=== PATIENT | female | born 1955 | race Two or more races ===

== ENCOUNTER 2017-12-05 19:47 | Inpatient (IN) | payer OTHER ==
--- NOTE | 2017-12-05 20:12 | EDPHY ---
H & P Smoking Status: Never smoked Time Seen by Provider: 12/05/17 20:01 HPI/ROS: CHIEF COMPLAINT: Left lower leg swelling and pain for 2 days HISTORY OF PRESENT ILLNESS: Patient is a 62-year-old [place] female here with her family for complaints of 2 days of left lower leg pain. He states he flew here from [place] about 1 week ago and has been walking around that of last few days she developed lower leg pain and swelling and erythema. She denies any fever or chills. There was no injury. She denies any chest pain or shortness of breath. She said the pain radiates the back of her leg into her left hip. She has never had a DVT or pulmonary embolism. REVIEW OF SYSTEMS: Constitutional: No fever, no chills. Eyes: No discharge. ENT: No sore throat. Cardiovascular: No chest pain, no palpitations. Respiratory: No cough, no shortness of breath. Gastrointestinal: No abdominal pain, no vomiting. Genitourinary: No hematuria. Musculoskeletal: No back pain. Skin: No rashes. Neurological: No headache. (Keith Gilmore) Physical Exam: General Appearance: Alert and no distress. Eyes: Pupils equal and round no injection. Respiratory: Chest is nontender, lungs are clear to auscultation. Cardiac: regular rate and rhythm. Gastrointestinal: Abdomen is soft and nontender, no masses, bowel sounds normal. Musculoskeletal: Left lower leg swelling and erythema when compared to the right. Tenderness to the left calf. Positive Homans. Neurovascular intact distal to the left ankle. Faint erythema and warmth when compared to the right. Skin: No rashes or lesions. (Keith Gilmore) Constitutional: Initial Vital Signs Temperature (C) 37.4 C 12/05/17 19:52 Heart Rate 80 12/05/17 19:52 Respiratory Rate 18 12/05/17 19:52 Blood Pressure 153/93 H 12/05/17 19:52 O2 Sat (%) 97 12/05/17 19:52 O2 Delivery Mode Room Air Allergies/Adverse Reactions: No Known Allergies Allergy (Verified 12/06/17 09:48) Home Medications: Medication Instructions Recorded Acetaminophen [Tylenol 325mg (*)] 325 mg PO DAILY PRN 12/06/17 Amlopres 5mg 5 mg PO DAILY 12/06/17 Multivitamins [Multivitamin (*)] 1 each PO DAILY 12/06/17 Apixaban [Eliquis] 5 mg PO BID #74 tab 12/09/17 Hydrocodone/APAP 5/325 [[place] 1 - 2 tab PO Q4HRS PRN #20 tab 12/09/17 5/325 (*)] Hydrocodone/Acetaminophen [[place] 1 - 2 tab PO Q6H PRN #20 tab 12/09/17 5/325 (*)] Medical Decision Making ED Course/Re-evaluation: 8-year-old female here with 24 hr of left leg pain found to have extensive DVT extending from the calf all the way to the inferior IV C. I discussed case with Radiology recommended consult with IR. I did discuss case with Interventional Radiology this evening and they stated that they would be willing to take the patient for thrombolysis tomorrow morning for the 1st case. She is to be kept NPO after midnight and heparin drip should be started this evening. Patient states no recent surgeries or trauma or history is of GI bleed. She is agreeable with admission. She has no chest pain or shortness of breath or hypoxia. (Keith Gilmore) This patient was primarily managed by the physician server assistant. I have reviewed the documentation and agree with the plan of care. I am the secondary supervising physician. (Yodit Waller) Differential Diagnosis: Pulmonary embolism, DVT, sepsis, abscess, septic joint (Keith Gilmore) - Data Points Laboratory Results: Laboratory Results 12/05/17 20:15 12/05/17 20:15 Medications Given: Discontinued Medications Acetaminophen (Tylenol) 650 mg PO Q4HRS PRN PRN Reason: Pain, Mild/Fever, Can Take PO Stop: 06/03/18 22:25 Last Admin: 12/07/17 00:09 Dose: 650 mg Hydrocodone Bitart/Acetaminophen ([place] 5/325) 1 - 2 tab PO Q4HRS PRN PRN Reason: Pain, Moderate Able to Take PO Stop: 12/15/17 22:25 Last Admin: 12/06/17 12:21 Dose: 1 tab Alteplase, Recombinant (Cathflo Activase) 0 mg IVP ONCALL PRN PRN Reason: Per provider during procedure Stop: 12/06/17 14:17 Last Admin: 12/07/17 17:19 Dose: 4 mg Amlodipine Besylate (Norvasc) 5 mg PO DAILY COUNT INCLUDES THE [facility] Stop: 06/05/18 11:59 Last Admin: 12/07/17 19:40 Dose: 5 mg Amlodipine Besylate (Norvasc) 5 mg PO DAILY COUNT INCLUDES THE [facility] Stop: 06/05/18 19:59 Last Admin: 12/09/17 09:06 Dose: 5 mg Enoxaparin Sodium (Lovenox) 90 mg SC ONCE ONE Stop: 12/07/17 18:46 Last Admin: 12/07/17 18:53 Dose: 90 mg Enoxaparin Sodium (Lovenox) 90 mg SC BID COUNT INCLUDES THE [facility] Stop: 06/06/18 08:59 Last Admin: 12/09/17 09:07 Dose: 90 mg Fentanyl (Sublimaze) 0 mcg IVP ONCALL PRN PRN Reason: Per provider during procedure Stop: 12/06/17 14:17 Last Admin: 12/07/17 17:56 Dose: 100 mcg Fentanyl (Sublimaze) 0 mcg IVP ONCALL PRN PRN Reason: Per provider during procedure Stop: 12/07/17 16:18 Last Admin: 12/07/17 16:15 Dose: 100 mcg Heparin Sodium (Porcine) (Heparin Injection) 0 unit IVP PRN PRN PRN Reason: re-bolus required by protocol Stop: 06/03/18 22:27 Last Admin: 12/07/17 16:31 Dose: 4,500 units Heparin Sodium (Porcine) (Heparin Injection) 0 unit IVP ONCE ONE Stop: 12/05/17 22:29 Last Admin: 12/06/17 00:33 Dose: 7,300 units Heparin Sodium (Porcine) (Heparin 50 Units/Ml (Premix)) 500 mls @ 0 mls/hr IV CONT ANA PAULA; Per Protocol PRN Reason: Protocol Stop: 06/03/18 22:29 Last Admin: 12/06/17 14:47 Dose: 500 mls Sodium Chloride (Ns) 1,000 mls @ 75 mls/hr IV CONT ANA PAULA Stop: 06/03/18 22:29 Last Admin: 12/07/17 16:16 Dose: 1,000 mls Alteplase, Recombinant 5 mg/ (Sodium Chloride) 100 mls @ 0 mls/hr IV CONT ANA PAULA PRN Reason: Per Protocol Stop: 06/04/18 13:59 Last Admin: 12/06/17 14:45 Dose: 100 mls Alteplase, Recombinant 5 mg/ (Sodium Chloride) 100 mls @ 0 mls/hr IV CONT ANA PAULA; Per Protocol PRN Reason: Protocol Stop: 06/04/18 16:29 Last Admin: 12/06/17 19:31 Dose: 100 mls Heparin Sodium (Porcine) (Heparin 50 Units/Ml (Premix)) 500 mls @ 0 mls/hr IV CONT ANA PAULA; As Directed PRN Reason: Protocol Stop: 06/04/18 21:29 Last Admin: 12/06/17 20:30 Dose: 500 mls Alteplase, Recombinant 5 mg/ (Sodium Chloride) 100 mls @ 10 mls/hr IV CONT ANA PAULA PRN Reason: Protocol Stop: 06/05/18 02:59 Last Admin: 12/07/17 12:44 Dose: 100 mls Sodium Chloride (Ns) 60 mls @ 20 mls/hr IV ONCE ONE Stop: 12/07/17 02:59 Last Admin: 12/07/17 00:00 Dose: 60 mls Sodium Chloride (Ns) 500 mls @ 20 mls/hr IV CONT ANA PAULA Stop: 06/05/18 06:59 Last Admin: 12/07/17 06:46 Dose: 500 mls Lorazepam (Ativan Injection) 1 mg IVP Q4HRS PRN PRN Reason: Anxiety, Unable to Take PO Stop: 06/04/18 16:38 Last Admin: 12/07/17 19:11 Dose: 1 mg Midazolam HCl (Versed) 0 mg IVP ONCALL PRN PRN Reason: Per provider during procedure Stop: 12/06/17 14:17 Last Admin: 12/07/17 17:56 Dose: 2 mg Midazolam HCl (Versed) 0 mg IVP ONCALL PRN PRN Reason: Per provider during procedure Stop: 12/07/17 16:18 Last Admin: 12/07/17 16:15 Dose: 2 mg Morphine Sulfate (Morphine) 1 - 2 mg IVP Q1HR PRN PRN Reason: Pain, Severe Unable to Take PO Stop: 12/15/17 22:25 Last Admin: 12/07/17 19:11 Dose: 2 mg Senna/Docusate Sodium (Senokot-S) 1 - 2 tab PO BID ANA PAULA PRN Reason: Protocol Stop: 06/05/18 11:14 Last Admin: 12/09/17 09:09 Dose: Not Given Departure - Departure Disposition: [facility] Acute Condition: Good
[2017-12-05 20:29] LABS: PLATELET COUNT 183 10^3/uL (150-400)
[2017-12-05 22:26] LABS: INR 1.11 (0.83-1.16); PROTIME(PATIENT) 14.5 SEC (12.0-15.0)
[2017-12-05] MEDS ORDERED: ONDANSETRON DISINTEGRATING 4 MG TAB PO PRN (22:26)
[2017-12-05] MEDS ORDERED: ACETAMINOPHEN 325 MG TAB PO PRN (22:26)
[2017-12-05] MEDS ORDERED: ONDANSETRON 4 MG/2 ML VIAL IVP PRN (22:26)
[2017-12-05] MEDS ORDERED: LORazepam 0.5 MG TAB PO PRN (22:26)
[2017-12-05] MEDS ORDERED: HEPARIN 10,000 UNIT/10 ML MDV (1,000 UNIT/ML) IVP ONE (22:28)
[2017-12-05] MEDS ORDERED: HEPARIN 10,000 UNIT/10 ML MDV (1,000 UNIT/ML) IVP PRN (22:28)
--- NOTE | 2017-12-05 23:13 | PDGENHP ---
History and Physical - Chief Complaint Left leg swelling and pain - History of Present Illness Source - Patient is visiting from [place], she understands and speaks limited amount of Martiniquais. Daughter is at bedside and provides majority of the history. Control Operator Flow Coat service offered and declined. EMR reviewed and case discussed with ED provider. HPI - Pleasant 62 yo F with pmx significant for HTN visiting her daughter from [place] arrived last week by plane. Patient plans to stay for several months in the area with her daughter. Patient reports development of leg swelling yesterday with noticeable increase in swelling and pain today. Patient denies any injury or previous history of DVT. She also reports she was sitting on the couch watching TV for majority of the day today. She denies any numbness/ tingling. No chest pain, SOB, cough. Patient does endorse some heartburn since arriving from [facility] but has a history of this dependent on food choices. Patient's diet has changed since her arrival to the . History Information - Allergies/Home Medication List Allergies/Adverse Reactions: No Known Allergies Allergy (Unverified 12/05/17 19:56) Home Medications: Htn Med 12/05/17 [Last Taken Unknown] I have personally reviewed and updated: family history, medical history, social history, surgical history - Past Medical History GERD, hypertension - Surgical History Additional surgical history: right TKA - Family History Additional family history: negative for DVT. - Social History Smoking Status: Never smoked Alcohol Use: None Drug Use: None Additional social history: Patient lives in [facility]. She is visiting her daughter locally. COR - FULL. Review of Systems Review of Systems: ROS: 10pt was reviewed & negative except for what was stated in HPI & below Constitutional: Reports: no symptoms EENMT: Reports: no symptoms Cardiac: Reports: edema. Denies: chest pain Respiratory: Reports: no symptoms Gastrointestinal: Reports: no symptoms Genitourinary: Reports: no symptoms Muscolosketal: Reports: back pain (left buttock, proximal leg) Skin: Reports: no symptoms Neurological: Reports: no symptoms Hematologic/Lymphatic: Reports: no symptoms Physical Exam Physical Exam: Selected Entries 12/05/17 19:52 Blood Pressure Automatic Method Heart Rate 80 Respiratory 18 Rate O2 Sat (%) 97 Temperature (C) 37.4 C Blood Pressure 153/93 H Mean Arterial 113 H Pressure (MAP) O2 Delivery Room Air Mode Temperature Oral Source Temp Pulse Resp BP Pulse Ox 37.4 C 68 16 149/94 H 100 12/05/17 19:52 12/05/17 23:00 12/05/17 23:00 12/05/17 23:00 12/05/17 23:00 Constitutional: no apparent distress, appears nourished, obese, other (NAD. patient lays still on gurney. appears uncomfortable with sitting up c/o left buttock/upper thigh pain/swelling.) Eyes: PERRL, anicteric sclera, EOMI, No scleral injection Ears, Nose, Mouth, Throat: moist mucous membranes, poor dentition (multiple gold caps.) Cardiovascular: regular rate and rhythym, no murmur, rub, or gallop, edema ( left leg) Peripheral Pulses: 1+: dorsalis-pedis (R), dorsalis-pedis (L) Respiratory: no respiratory distress, no rales or rhonchi, clear to auscultation , No expiratory wheeze, No inspiratory crackles, No respiratory distress Gastrointestinal: normoactive bowel sounds, soft, non-tender abdomen, no palpable masses, other (obese abdomen), No distension Genitourinary: no bladder tenderness Skin: warm, normal color, no rashes or abrasions, other (left lower leg with some increased pigmentation/redness/swelling compared to the left. Tender left lower extremity from mid claf proximally.), No rash Musculoskeletal: full muscle strength, other (patient sits up independently.), No generalized weakness Neurologic: other (grossly nonfocal exam), No facial droop Psychiatric: interacting appropriately, not encephalopathic, No anxious Lab Data & Imaging Review 12/05/17 20:15 12/05/17 20:15 WBC 8.16 10^3/uL (3.80-9.50) 12/05/17 20:15 RBC 4.19 10^6/uL (4.18-5.33) 12/05/17 20:15 Hgb 12.3 g/dL (12.6-16.3) L 12/05/17 20:15 Hct 36.1 % (38.0-47.0) L 12/05/17 20:15 MCV 86.2 fL (81.5-99.8) 12/05/17 20:15 MCH 29.4 pg (27.9-34.1) 12/05/17 20:15 MCHC 34.1 g/dL (32.4-36.7) 12/05/17 20:15 RDW 12.3 % (11.5-15.2) 12/05/17 20:15 Plt Count 183 10^3/uL (150-400) 12/05/17 20:15 MPV 9.4 fL (8.7-11.7) 12/05/17 20:15 Neut % (Auto) 74.3 % (39.3-74.2) H 12/05/17 20:15 Lymph % (Auto) 15.7 % (15.0-45.0) 12/05/17 20:15 [place] % (Auto) 8.9 % (4.5-13.0) 12/05/17 20:15 Eos % (Auto) 0.2 % (0.6-7.6) L 12/05/17 20:15 Baso % (Auto) 0.5 % (0.3-1.7) 12/05/17 20:15 Nucleat RBC Rel Count 0.0 % (0.0-0.2) 12/05/17 20:15 Absolute Neuts (auto) 6.06 10^3/uL (1.70-6.50) 12/05/17 20:15 Absolute Lymphs (auto) 1.28 10^3/uL (1.00-3.00) 12/05/17 20:15 Absolute Monos (auto) 0.73 10^3/uL (0.30-0.80) 12/05/17 20:15 Absolute Eos (auto) 0.02 10^3/uL (0.03-0.40) L 12/05/17 20:15 Absolute Basos (auto) 0.04 10^3/uL (0.02-0.10) 12/05/17 20:15 Absolute Nucleated RBC 0.00 10^3/uL (0-0.01) 12/05/17 20:15 Immature Gran % 0.4 % (0.0-1.1) 12/05/17 20:15 Immature Gran # 0.03 10^3/uL (0.00-0.10) 12/05/17 20:15 ESR 8 MM/HR (0-30) 12/05/17 20:15 PT 14.5 SEC (12.0-15.0) 12/05/17 20:15 INR 1.11 (0.83-1.16) 12/05/17 20:15 APTT 26.6 SEC (23.0-38.0) 12/05/17 20:15 Sodium 130 mEq/L (135-145) L 12/05/17 20:15 Potassium 4.6 mEq/L (3.3-5.0) 12/05/17 20:15 Chloride 95 mEq/L (97-110) L 12/05/17 20:15 Carbon Dioxide 22 mEq/l (22-31) 12/05/17 20:15 Anion Gap 13 mEq/L (8-16) 12/05/17 20:15 BUN 19 mg/dL (7-23) 12/05/17 20:15 Creatinine 0.9 mg/dL (0.6-1.0) 12/05/17 20:15 Estimated GFR > 60 12/05/17 20:15 Glucose 108 mg/dL (70-100) H 12/05/17 20:15 Calcium 9.4 mg/dL (8.5-10.4) 12/05/17 20:15 C-Reactive Protein 29.0 mg/L (<10.0) H 12/05/17 20:15 Imaging Review: Ultrasound and Venous Duplex Doppler Study with Color and Spectral Analysis of the Left Lower Extremity Clinical History: 62-year-old female presenting to the ED with left lower extremity swelling which began this morning; the patient recently flew from [place] 2 weeks ago. Rule out DVT. Technique: A high frequency transducer was used for imaging and Doppler study of the veins of the left lower extremity. Pulsed Doppler and color Doppler were utilized, along with various maneuvers to assess flow in the veins. Cursory evaluation of the contralateral common femoral vein was obtained for comparison purposes. Comparison Study: None. Findings: There is extensive left lower extremity deep venous thrombosis extending possibly from the level of the lower IVC (body habitus and overlying bowel gas preclude complete evaluation at this level), and throughout the visualized left common iliac vein, left external iliac vein, left common femoral vein, left profunda femoris vein, left superficial femoral vein, left popliteal vein , and the paired left posterior tibial and peroneal veins. There is also clot within the left greater saphenous vein near the saphenofemoral junction. The popliteal fossa is unremarkable. Impression: Extensive left lower extremity deep venous thrombosis, as-detailed. Findings were discussed with Keith Gilmore PA-C at 21:39, on 12/05/2017. Dictated By: Keith Garnett MD Visualized and Interpreted imaging results: Yes Assessment & Plan Assessment: 62 yo F with pmx significant for HTN recently arrived from [place] to visit daughter for few months presents with c/o 2 days history of increased leg swelling and today leg pain. 1. extensive LLE DVT - Patient has been starting on heparin gtt with appropriate bolus. IR consulted from the ED before admission and will plan for additional thrombolytic therapy. NPO after midnight. 2. LLE pain/swelling - tylenol prn. supportive care. patient had been taking ibuprofen advised against NSAIDs and would not be ordered at this time. plan as above with IR in AM. 3. hyponatremia - possibly related to dehydration vs. patient anti-hypertensive therapy which daughter will bring tomorrow. IVF overnight. additional urine studies for worsening sodium in AM. 4. hypochloridemia in setting of hyponatremia. repeat bmp in AM. IVF as above. 5. anemia - suspect anemia of chronic disease. will monitor hh closely with anticoagulation. no evidence of active bleeding and no report of bleeding previously. 4. benign essential HTN - BPs mildly elevated. Patient on an antihypertensive from [place]. daughter plans to bring in patient pill packaging. add prn if needed but at this time BPs stable. 5. obesity (BMI 34.3) FEN - diet until midnight then npo. IVF. electrolyte monitoring replacement prn. PPX - heparin gtt. COR - FULL Dispo - Admit to inpatient status on med/surg floor initially as patient vital signs stable and no respiratory symptoms. Anticipate patient will require transfer to ICU post thrombolytic therapy.
[2017-12-06] MEDS: HYDROCODONE/APAP 5/325 TAB PO PRN ×3 (00:03→12:21)
[2017-12-06] MEDS: NS 1,000 ML IV SCH ×2 (00:05→23:44)
[2017-12-06] MEDS: HEPARIN/DEXTROSE 500 ML IV SCH ×2 (00:34→14:47)
[2017-12-06 06:37] LABS: PLATELET COUNT 162 10^3/uL (150-400)
[2017-12-06 07:19] LABS: CREATINE KINASE 125 IU/L (0-156)
--- NOTE | 2017-12-06 09:11 | PDMN ---
Medical Necessity Medical necessity: MCG: M350 DVT A-4 days: LLE pain, swelling, recent long flight, extensive LLE DVT pt started on Hep. drip., IR consulted., hyponatremia, hypocholridemia, anemia, benign essential HTN, obesity, anticipate > 2 MN ongoing med nec care
--- NOTE | 2017-12-06 09:39 | ASMTCMCOM ---
CM Note CM Note Notes: Pt is a 8o y/o female from [facility], visiting the [place], who came to the Ed due to a development of leg swelling and pain. Pt flew to the [place] from [place] one week ago to spend several months with her daughter. She is being treated for an extensive left lower extremity deep venous thrombosis. Pt may need to transfer to ICU following surgery. CM to follow. D/C Plan: TBD Date Signed: 12/06/2017 09:39 AM Electronically Signed By:Elizabeth Huff
--- NOTE | 2017-12-06 10:37 | HOSPPROG ---
Hospitalist Progress Note Assessment/Plan: 62yo F who presents with extensive LLE DVT after travelling from [place]. #LLE DVT: Involving lower IVC, iliac, femoral veins. No e/o compartment syndrome , neurologically intact. Likely provoked in setting of long airplane flight. This is her first thrombotic episode. - Heparin gtt - IR consult for catheter directed thrombolysis #LLE pain: Related to above - [place], morphine PRN - At risk for post-thrombotic syndrome #Hyponatremia: Resolved with IVF #Anemia: Normocytic. H/H stable on anticoagulation, will monitor. Diet: NPO for procedure VTE ppx: therapeutic anticoagulation Code: full Dispo: Remain inpatient for management of DVT. Will move to ICU after procedure for serial monitoring. Subjective: Attempted to use interpretor, patient declined and is wanting to use daughter as top precipitator operator. Still having significant left leg and groin pain today. No new numbness or weakness. Objective: Vital Signs Temp Pulse Resp BP Pulse Ox 36.7 C 71 18 141/71 H 95 12/06/17 07:58 12/06/17 07:58 12/06/17 07:58 12/06/17 07:58 12/06/17 07:58 Laboratory Results 12/06/17 06:31 12/06/17 06:31 12/05/17 12/06/17 12/07/17 05:59 05:59 05:59 Intake Total 430.8 Balance 430.8 PT 14.5 SEC (12.0-15.0) 12/05/17 20:15 INR 1.11 (0.83-1.16) 12/05/17 20:15 - Physical Exam Constitutional: no apparent distress, appears nourished, not in pain Eyes: PERRL, anicteric sclera, EOMI Ears, Nose, Mouth, Throat: moist mucous membranes, hearing normal, ears appear normal, no oral mucosal ulcers Cardiovascular: regular rate and rhythym, no murmur, rub, or gallop, edema (LLE edema), other (unable to palpate DP or PT pulses in LLE) Respiratory: no respiratory distress, no rales or rhonchi, clear to auscultation Gastrointestinal: normoactive bowel sounds, soft, non-tender abdomen, no palpable masses Genitourinary: no bladder fullness, no bladder tenderness, no renal bruits Musculoskeletal: full muscle strength, no muscle tenderness, normal joint ROM Neurologic: AAOx3, sensation intact bilaterally, No weakness Psychiatric: interacting appropriately, not anxious, not encephalopathic, thought process linear ICD10 Worksheet Patient Problems: Problems Problem Status Onset Deep vein thrombosis (DVT) of left lower extremity Acute - ICD10 Problem Qualifiers (1) Deep vein thrombosis (DVT) of left lower extremity
[2017-12-06] MEDS ORDERED: FLUMAZENIL 0.5 MG/5 ML MDV IVP PRN (13:11)
[2017-12-06] MEDS ORDERED: HEPARIN 10,000 UNIT/10 ML MDV (1,000 UNIT/ML) IVP PRN (13:11)
[2017-12-06] MEDS ORDERED: NALOXONE HCL 0.4 MG/ML INJ IVP PRN (13:11)
--- NOTE | 2017-12-06 13:27 | PDHPUP ---
History & Physical Update H&P update statement: This history and physical update is based on an assessment of the patient which was completed after admission or registration (within 24 hours), but prior to the surgery/procedure. Massive iliofemoral LLE DVT plan for catheter directed thrombolysis. H&P update: H&P reviewed & patient examined, no change in patient's condition since H&P completed
--- NOTE | 2017-12-06 13:27 | PDPROPOC ---
Sedation Plan of Care Sedation Plan of Care: vital signs stable, mental status noted, patient educated of risks, benefits, alternatives, patient can tolerate sedation ASA Classification: ASA 3 Planned drugs: fentanyl, midazolam Mallampati Score: Class 2 Mallampati Reference Image: Patient passed 3-3-2 rule?: Yes
[2017-12-06] MEDS ORDERED: ALTEPLASE 5 MG in NS 100 ML IV SCH ×2 (14:00→16:30)
[2017-12-06] MEDS: ALTEPLASE 2 MG VIAL IVP PRN (14:14)
[2017-12-06] MEDS ORDERED: ALTEPLASE 2 MG VIAL ONE (14:17)
--- NOTE | 2017-12-06 14:35 | PDRADPN ---
Radiology Procedure Note Date of Procedure: 12/06/17 Radiologist: [place] Anesthesia: IV Sedation Pre-op Diagnosis: Iliofemoral DVT Post-op Diagnosis: Iliofemoral DVT Indication: Iliofemoral DVT Procedure: Catheter directed thrombolysis Finding(s): Occlusive thrombus left popliteal, femoral, common femoral, ext/ common iliac, and caudal IVC. Inf/Abcess present in the surg proc area at time of surgery?: No
[2017-12-06] MEDS: MIDAZOLAM 2 MG/2 ML VIAL IVP PRN (14:43)
[2017-12-06] MEDS: fentaNYL 100 MCG/2 ML INJ IVP PRN (14:43)
[2017-12-06] MEDS ORDERED: IOPAMIDOL (ISOVUE-300) 100 ML BTL ONE (14:45)
[2017-12-06] MEDS ORDERED: HEPARIN/DEXTROSE 500 ML IV SCH ×2 (16:30→21:30)
[2017-12-06] MEDS: LORazepam 2 MG/ML INJ IVP PRN (17:20)
[2017-12-07] MEDS ORDERED: NS 60 ML IV ONE
[2017-12-07] MEDS ORDERED: ALTEPLASE 5 MG in NS 100 ML IV SCH (03:00)
[2017-12-07 06:26] LABS: PLATELET COUNT 130 10^3/uL (150-400)
[2017-12-07] MEDS ORDERED: NS 60 ML IV SCH (07:00)
[2017-12-07] MEDS ORDERED: IOPAMIDOL (ISOVUE-300) 100 ML BTL ONE ×3 (09:13→18:27)
[2017-12-07] MEDS: amLODIPine BESYLATE 5 MG TAB PO SCH ×3 (11:12→19:40)
[2017-12-07] MEDS ORDERED: MAGNESIUM HYDROXIDE 30 ML UDCUP PO PRN (11:14)
[2017-12-07] MEDS ORDERED: LACTULOSE 20 GM/30 ML UDCUP PO PRN (11:14)
[2017-12-07] MEDS ORDERED: POLYETHYLENE GLYCOL 3350 17 GM PKT PO PRN (11:14)
--- NOTE | 2017-12-07 11:14 | HOSPPROG ---
Hospitalist Progress Note Assessment/Plan: 62yo F who presents with extensive LLE DVT (iliac, femoral, popliteal) after travelling from [place]. #LLE DVT: Improved on venogram this AM but still occluded at common iliac vein. No e/o compartment syndrome, neurologically intact. Provoked in setting of long airplane flight. This is her first thrombotic episode. - Heparin gtt, catheter directed tPA per IR - Plan to return to IR suite for possible stent placement this PM #LLE pain: Related to above. At risk for post-thrombotic syndrome - [place], morphine PRN, bowel regimen - Discussed gabapentin, patient wanting to hold off for now #Hyponatremia: Resolved with IVF #Anemia: Normocytic. H/H stable on anticoagulation, will monitor. Diet: NPO for procedure VTE ppx: therapeutic anticoagulation Code: full Dispo: Remain in ICU for catheter directed thrombolysis. Subjective: Still having significant leg pain with movement but none with rest. Pain meds working. No BM. Had venogram this AM with improvement in clot but still occluded at common iliac vein with collateralization. Objective: Vital Signs Temp Pulse Resp BP Pulse Ox 37.3 C 74 20 135/77 H 97 12/07/17 04:00 12/07/17 10:00 12/07/17 10:00 12/07/17 10:00 12/07/17 10:00 Laboratory Results 12/07/17 05:31 12/06/17 06:31 12/06/17 12/07/17 12/08/17 05:59 05:59 05:59 Intake Total 430.8 1524 130 Output Total 250 250 Balance 430.8 1274 -120 PT 14.5 SEC (12.0-15.0) 12/05/17 20:15 INR 1.11 (0.83-1.16) 12/05/17 20:15 - Physical Exam Constitutional: no apparent distress, appears nourished, not in pain Eyes: PERRL, anicteric sclera, EOMI Ears, Nose, Mouth, Throat: moist mucous membranes, hearing normal, ears appear normal, no oral mucosal ulcers Cardiovascular: regular rate and rhythym, no murmur, rub, or gallop, edema (non- pitting edema of LLE), other (unable to palpate DP/PT pulses in left foot but it is warm) Respiratory: no respiratory distress, no rales or rhonchi, clear to auscultation Gastrointestinal: normoactive bowel sounds, soft, non-tender abdomen, no palpable masses Skin: warm, no rashes or abrasions, no fluctuance, no induration Neurologic: AAOx3, sensation intact bilaterally Psychiatric: interacting appropriately, not anxious, not encephalopathic, thought process linear ICD10 Worksheet Patient Problems: Problems Problem Status Onset Deep vein thrombosis (DVT) of left lower extremity Acute - ICD10 Problem Qualifiers (1) Deep vein thrombosis (DVT) of left lower extremity
[2017-12-07] MEDS: SENNOSIDES/DOCUSATE SODIUM TAB PO SCH (11:16)
--- NOTE | 2017-12-07 11:39 | ASMTCMCOM ---
CM Note CM Note Notes: Patient to go to OR today for stent placement. Patient's pain needs continued monitoring. Daughter at bedside. No therapies ordered. Patient will most likely d/c independently. CM will follow. Date Signed: 12/07/2017 11:38 AM Electronically Signed By:Yasmin Swan LCSW
[2017-12-07] MEDS: NS 1,000 ML IV SCH ×2 (14:10→16:16)
[2017-12-07] MEDS ORDERED: MEPERIDINE 25 MG/ML SYR IVP PRN (15:17)
[2017-12-07] MEDS ORDERED: fentaNYL 100 MCG/2 ML INJ IVP PRN (15:17)
[2017-12-07] MEDS ORDERED: MIDAZOLAM 2 MG/2 ML VIAL IVP PRN (15:17)
[2017-12-07] MEDS ORDERED: NALOXONE HCL 0.4 MG/ML INJ IVP PRN (15:17)
[2017-12-07] MEDS ORDERED: FLUMAZENIL 0.5 MG/5 ML MDV IVP PRN (15:17)
[2017-12-07] MEDS ORDERED: NS 1,000 ML IV SCH (15:30)
[2017-12-07] MEDS ORDERED: fentaNYL 100 MCG/2 ML INJ ONE ×2 (16:23→17:53)
[2017-12-07] MEDS ORDERED: MIDAZOLAM 2 MG/2 ML VIAL ONE ×2 (16:23→17:53)
[2017-12-07] MEDS ORDERED: HEPARIN 10,000 UNIT/10 ML MDV (1,000 UNIT/ML) ONE (16:24)
[2017-12-07] MEDS: fentaNYL 100 MCG/2 ML INJ IVP PRN ×2 (16:33→17:56)
[2017-12-07] MEDS: MIDAZOLAM 2 MG/2 ML VIAL IVP PRN ×2 (16:33→17:56)
[2017-12-07] MEDS ORDERED: ALTEPLASE 2 MG VIAL ONE (17:14)
[2017-12-07] MEDS: ALTEPLASE 2 MG VIAL IVP PRN (17:19)
--- NOTE | 2017-12-07 18:40 | PDRADPN ---
Radiology Procedure Note Date of Procedure: 12/07/17 Radiologist: Codey Mehta Anesthesia: IV Sedation Pre-op Diagnosis: MTS Post-op Diagnosis: Same Procedure: thrombectomy, venoplasty, and placement of a Wallstent in the left CIV Inf/Abcess present in the surg proc area at time of surgery?: No
[2017-12-07] MEDS ORDERED: ENOXAPARIN 100 MG/ML SYR SC ONE (18:45)
[2017-12-07] MEDS: LORazepam 2 MG/ML INJ IVP PRN (19:11)
[2017-12-07] MEDS ORDERED: amLODIPine BESYLATE 5 MG TAB PO SCH (20:00)
[2017-12-07] MEDS ORDERED: SENNOSIDES/DOCUSATE SODIUM TAB PO SCH (21:00)
[2017-12-08] MEDS: SENNOSIDES/DOCUSATE SODIUM TAB PO SCH ×3 (05:49→20:53)
[2017-12-08] MEDS: ENOXAPARIN 100 MG/ML SYR SC SCH ×2 (08:39→20:52)
[2017-12-08] MEDS: amLODIPine BESYLATE 5 MG TAB PO SCH (08:41)
--- NOTE | 2017-12-08 15:18 | HOSPPROG ---
Hospitalist Progress Note Assessment/Plan: Subjective Follow-up on left lower extremity deep vein thrombosis. Patient is not complaining of any chest pain or difficulty breathing. No complaints of chest pain or syncope either. I had a long conversation with the patient's son and daughter who were present at the bedside today. Our discussion primarily was centered around oral anticoagulation. We discussed Coumadin and direct thrombin inhibitors. I provided the family with prescriptions for Xarelto and Eliquis as well as Lovenox injections dizzy that he get an idea of cost with the patient's current insurance which is a travel insurance that she traveled from [place]. We also discussed the pros and cons of each agent including cost and availability of reversing agents as well as the need for blood monitoring with Coumadin. Objective Vital signs as detailed below Exam General-awake alert conversant no acute distress Heart-regular rate and rhythm no murmurs Lungs-Clear to auscultation with normal respiratory effort Abdomen-soft nontender nondistended normal bowel sounds -no Velasco catheter in place Extremities-tenderness with palpation at the left lower leg, no significant pitting edema appreciated Skin-no concerning skin rashes noted Labs as detailed Assessment and plan Deep vein thrombosis-provoked secondary to prolonged travel. Left lower extremity. Extensive up to the left common iliac vein. Patient is status post tPA and subsequent stent placement of left common iliac vein. Continue Lovenox 90 mg subcu every 12 hr. The patient's family will look into options for oral anticoagulants and will discuss further with them tomorrow. Left lower extremity pain-persistent secondary to the thrombus. Pain appears reasonably well controlled with current pain medications. Anemia-stable. Continue to trend. Hyponatremia-mild. Asymptomatic. Trend. Hypertension-continue current amlodipine. Disposition-likely could be discharged home in the coming 1-2 days if continued stability and once we have the plan on oral anticoagulation. Objective: Vital Signs Temp Pulse Resp BP Pulse Ox 36.8 C 89 21 H 135/80 H 92 12/08/17 06:00 12/08/17 10:00 12/08/17 10:00 12/08/17 10:00 12/08/17 10:00 Laboratory Results 12/08/17 05:35 12/06/17 06:31 12/07/17 12/08/17 12/09/17 05:59 05:59 05:59 Intake Total 1524 2777 Output Total 250 850 Balance 1274 1927 PT 14.5 SEC (12.0-15.0) 12/05/17 20:15 INR 1.11 (0.83-1.16) 12/05/17 20:15 ICD10 Worksheet Patient Problems: Problems Problem Status Onset Deep vein thrombosis (DVT) of left lower extremity Acute
[2017-12-09 06:13] LABS: PLATELET COUNT 193 10^3/uL (150-400)
[2017-12-09 06:18] LABS: INR 1.04 (0.83-1.16); PROTIME(PATIENT) 13.8 SEC (12.0-15.0)
[2017-12-09 08:02] VITALS: BP 137/75
[2017-12-09] MEDS: amLODIPine BESYLATE 5 MG TAB PO SCH (09:06)
[2017-12-09] MEDS: ENOXAPARIN 100 MG/ML SYR SC SCH (09:07)
[2017-12-09] MEDS: SENNOSIDES/DOCUSATE SODIUM TAB PO SCH (09:09)
--- NOTE | 2017-12-09 15:11 | ASDISCHSUM ---
Discharge Information Plan Status:Home with No Needs Medically Cleared to Leave:12/09/2017 Discharge Date:12/09/2017 12:38 PM CM D/C Disposition:Home, Routine, Self-Care ADT D/C Disposition:Home, Routine, Self-Care Projected Discharge Date:12/09/2017 10:00 AM Transportation at D/C:Family Discharge Delay Reason: Follow-Up Date:12/09/2017 10:00 AM Discharge Slot:1 - 8:01 am - 12:00 noon Final Diagnosis:DVT LLE Placement Information Patient Contact Information Contact Name:NELLA Relationship:Daughter Address: Work Phone: City: [facility] Phone: State/Master Equation Code: Email: Financial Information Financial Class:HMO and PPO Plans Primary Plan Desc:[facility] [place] Primary Plan Number:[id number] Secondary Plan Desc: Secondary Plan Number: Assessment Information LACE LACE Length of stay for Answers: 4-6 days current admission Acuity / Level of Answers: Yes Care: Did the patient have an inpatient admission? Comorbidities - select Answers: Other Notes: HTN; GERD all that apply # of Emergency department Answers: 1-2 visits in the last 6 months Score: 9 Date Signed: 12/09/2017 03:10 PM Electronically Signed By:Elaine Ravi LCSW [facility] CM Progress Note CM Note CM Note Notes: Pt is a 8o y/o female from [facility], visiting the [facility], who came to the Ed due to a development of leg swelling and pain. Pt flew to the [facility] from [place] one week ago to spend several months with her daughter. She is being treated for an extensive left lower extremity deep venous thrombosis. Pt may need to transfer to ICU following surgery. CM to follow. D/C Plan: TBD Date Signed: 12/06/2017 09:39 AM Electronically Signed By:Elizabeth Huff [facility] CM Progress Note CM Note CM Note Notes: Patient to go to OR today for stent placement. Patient's pain needs continued monitoring. Daughter at bedside. No therapies ordered. Patient will most likely d/c independently. CM will follow. Date Signed: 12/07/2017 11:38 AM Electronically Signed By:Yasmin Swan LCSW Case Management Discharge Plan Note Case Management Discharge Discharge Order Complete? Answers: Yes Patient to Obtain Answers: via Family Medications Transportation Arranged Answers: Family/Friends Transport will Pick (Date 12/09/2017 10:00 AM & Time) Family Notified Answers: Yes Notes: Family to transport Discharge Comments Notes: Patient has been discharged home with family. She had a LLE DVT s/p TPA and a stent. spoke to them about oral anticoagulation medicines which she will continue on d/c. Date Signed: 12/09/2017 03:10 PM Electronically Signed By:Elaine Ravi LCSW Intervention Information
--- NOTE | 2017-12-09 17:25 | GDS ---
PRIMARY CARE PROVIDER: None currently established locally as patient is visiting from [place]. DISCHARGE DIAGNOSIS: Left lower extremity deep vein thrombosis, extensive, from the level of the low er inferior vena cava. HISTORY OF PRESENT ILLNESS: The patient is a pleasant 62-year-old female with a past medical history of hypertension who traveled to [place] to stay with her children who reside here, from [place]. She presented to the emergency room on 12/05/2017, with complaints of left lower leg swelling and pain f or approximately 2 days. She had a lower extremity ultrasound performed, which revealed extensive le ft lower extremity deep vein thrombosis extending possibly from the level of the lower inferior vena cava and throughout the left common iliac vein. Due to the extensive nature of the thrombosis, Inter ventional Radiology was consulted and she did have an infusion of tPA. Followup ultrasound did show improvement of the thrombus burden; however, she was noted to have persistent thrombus in the common iliac vein. The patient subsequently underwent thrombectomy, venoplasty, and placement of a stent. She was initially on a heparin drip and then transitioned to Lovenox injections. I had a discussion with the patient and family regarding oral anticoagulation, and after a long discussion, we ultimatel y decided to proceed with Eliquis at 10 mg twice a day for 1 week and then 5 mg twice a day thereafte r. The benefits and risks of Eliquis were fully discussed, including cost, limited availability of r eversing agents, and the lack of need for dietary restrictions or blood monitoring. HOSPITAL COURSE BY PROBLEM: 1. Deep vein thrombosis-provoked secondary to prolonged travel. Extensive through the left lower ex tremity, possibly even up to the inferior IVC. Patient is now status post tPA infusion and subsequen t stent placement. She will continue with Eliquis. I recommended a followup in 1-[address] [facility] primary provider for reassessment. 2. Left lower extremity pain-as needed acetaminophen or hydrocodone/acetaminophen combination. I ca utioned against use of NSAIDs for pain control. 3. Anemia-her hemoglobin was slightly low, but stable throughout her hospitalization with hemoglobin measurements running from 12 to 11.0, to 10.8, to 10.5, to 11.5. 4. Hypertension-she was continued on amlodipine. DISPOSITION: Patient appeared stable for transfer back to home. She was ambulatory without signific ant assistance on the day of discharge. LABORATORY STUDIES: Notable studies: White blood cell count 4, hemoglobin 11.5, platelets 193. Sod ium 138, potassium 3.8, chloride 106, bicarb 23, BUN 9, creatinine 0.7, glucose of 100. CPK 125. C- reactive protein 29. Left lower extremity ultrasound on admission, as detailed above. Left lower ex tremity ultrasound from 12/06/2017, showed she had improved clot burden. EXAM: On day of discharge: GENERAL: The patient appears comfortable. She is awake, alert, convers ant, in no acute distress. She was seen ambulating in the hallway without significant assistance. H EART: Regular. No murmurs appreciated. LUNGS: Clear to auscultation with normal respiratory effor t. ABDOMEN: Soft, nontender, nondistended. : No Velasco catheter in place. EXTREMITIES: No sign ificant pitting edema. She does have some tenderness with palpation in the left lower leg. DISCHARGE MEDICATIONS: 1. Hydrocodone/acetaminophen 5/325, one to two tablets every 4 hours as needed. 2. Eliquis 5 mg tablets, 2 tablets twice a day for 7 days, then 1 tablet twice a day thereafter. 3. Amlodipine 5 mg daily. DISCHARGE INSTRUCTIONS: I recommend a followup visit with her primary provider. I have also educate d them that I recommended she take at least 3 months of anticoagulation therapy and then once her cou rse of anticoagulation is complete, I have recommended a daily aspirin thereafter indefinitely. /[id number]/MODL
[2017-12-09] MEDS ORDERED: APIXABAN 5 MG TAB PO SCH ×2 (21:00)
== END 2017-12-09 12:38 | disposition home or self-care (01) | DRG 271 ==
LOC: F1N 23:25 → F2N 12-06 14:54
PROVIDERS: ADMIT Internal Medicine; ATTEND Internal Medicine
PROC: 067D3DZ Dilation of Left Common Iliac Vein with Intraluminal Device, Percutaneous Approach (ICD-10-PCS; principal; 2017-12-07)
PROC: 06CN3ZZ Extirpation of Matter from Left Femoral Vein, Percutaneous Approach (ICD-10-PCS; principal; 2017-12-07)
PROC: 3E03317 Introduction of Other Thrombolytic into Peripheral Vein, Percutaneous Approach (ICD-10-PCS; principal; 2017-12-07)
PROC: 06C03ZZ Extirpation of Matter from Inferior Vena Cava, Percutaneous Approach (ICD-10-PCS; principal; 2017-12-07)
DX: I82.220 Acute embolism and thrombosis of inferior vena cava (principal); I82.422 Acute embolism and thrombosis of left iliac vein; D64.9 Anemia, unspecified; I10 Essential (primary) hypertension; E66.9 Obesity, unspecified; Z68.34 Body mass index [BMI] 34.0-34.9, adult
CPT/HCPCS: 85520-90; 97161-GP; C1725; C1757; C1758; C1769; C1874; C1894; J1644; J1650; J2060; J2250; J2270; J2310; J2997; J3010; Q9967